=== PATIENT | female | born 1960 | race Caucasian/White ===

== ENCOUNTER 2016-09-25 06:04 | Day surgery (SDC) | payer MEDICAID ==
[~2016-09-25] VITALS: Ht 175.3 cm; Wt 123.6 kg
[2016-09-25] MEDS ORDERED: SODIUM CHLORIDE 0.9% 1,000 ML IV ONE ×2 (06:36→07:00)
[2016-09-25] MEDS ORDERED: ALBU8.5H IH (07:18)
[2016-09-25] MEDS ORDERED: FAMO20TA8 PO (07:18)
[2016-09-25] MEDS ORDERED: SOLI10TA PO (07:18)
[2016-09-25] MEDS ORDERED: ATOR20TA65 PO (07:18)
[2016-09-25] MEDS ORDERED: ACET-2902 PO (07:18)
[2016-09-25] MEDS ORDERED: ZOLP10TA6 PO (07:18)
[2016-09-25] MEDS ORDERED: ALPR0.5T PO (07:18)
[2016-09-25] MEDS ORDERED: ROPI0.255 PO (07:18)
[2016-09-25] MEDS ORDERED: MONT10TA24 PO (07:18)
[2016-09-25] MEDS ORDERED: PARO40TA72 PO (07:18)
[2016-09-25] MEDS ORDERED: ACLI400A2 IH (07:18)
[2016-09-25] MEDS ORDERED: DICY10CA13 PO (07:18)
[2016-09-25] MEDS ORDERED: NITR50CA3 PO (07:18)
[2016-09-25] MEDS ORDERED: METH750T3 PO (07:18)
[2016-09-25] MEDS ORDERED: BUSP10TA23 PO (07:18)
[2016-09-25] MEDS ORDERED: WARF5TAB6 PO (07:18)
[2016-09-25] MEDS ORDERED: GABA-318 PO (07:18)
[2016-09-25] MEDS ORDERED: BUDE10.2 IH (07:18)
[2016-09-25] MEDS ORDERED: LEVE100S PO (07:18)
[2016-09-25] MEDS ORDERED: FentaNYL CITRATE-PF 100 MCG/2 ML VIAL ONE (07:31)
[2016-09-25] MEDS ORDERED: MIDAZOLAM HCL 2 MG/2 ML VIAL ONE (07:31)
[2016-09-25] MEDS ORDERED: MethylPREDNISolone SOD SUCC 125 MG/2 ML VIAL IVP ONE (08:30)
[2016-09-25] MEDS ORDERED: MethylPREDNISolone SOD SUCC 125 MG/2 ML VIAL ONE (09:04)
[2016-09-25] MEDS ORDERED: ALBUTEROL SULFATE 2.5 MG/0.5 ML NEB SOLUTION NEB ONE (17:19)
[2016-09-25] MEDS ORDERED: BENZOCAINE 20% 50 MCG/SPRAY 57 GM TP ONE (17:19)
[2016-09-25] MEDS ORDERED: LIDOCAINE HCL 2% 30 ML JELLY TP ONE (17:19)
[2016-09-25] MEDS ORDERED: LIDOCAINE HCL 4% 50 ML SOLUTION TP ONE (17:19)
[2016-09-25] MEDS ORDERED: OXYGEN THERAPY IH SCH (20:00)
== END 2016-09-25 10:00 | disposition home or self-care (01) ==
LOC: SURGERY 06:04
PROVIDERS: ATTEND Internal Medicine Critical Care Medicine
DX: J38.4 Edema of larynx (principal); B37.0 Candidal stomatitis; M19.90 Unspecified osteoarthritis, unspecified site; J45.909 Unspecified asthma, uncomplicated; K21.9 Gastro-esophageal reflux disease without esophagitis; Z88.0 Allergy status to penicillin; Z88.8 Allergy status to other drugs, medicaments and biological substances; Z98.890 Other specified postprocedural states; Z90.710 Acquired absence of both cervix and uterus; Z87.442 Personal history of urinary calculi; Z85.820 Personal history of malignant melanoma of skin
CPT/HCPCS: 31623; 31624; 71010; 87015; 87070; 87101; 87205; 87220; J2250; J2930; J3010; J7030; 88108; 88312; 93005